=== PATIENT | female | born 1990 | race African-American/Black ===

== ENCOUNTER 2016-09-11 05:34 | Emergency (ER) | payer OTHER ==
[2016-09-11] MEDS ORDERED: SODIUM CHLORIDE 0.9% 1,000 ML ONE (07:37)
== END 2016-09-11 12:00 | disposition home or self-care (01) ==
LOC: ER 05:34
CPT/HCPCS: 36415; 76830; 80053; 81003; 83690; 84703; 85025; 87077; 87088; 87491; 87591; 87800; 96360